=== PATIENT | female | born 1975 | race Caucasian/White ===

== ENCOUNTER 2023-04-23 14:36 | Outpatient (OUT) | payer OTHER, SELFPAY ==
--- NOTE | 2023-04-23 14:38 | XR_ITS ---
The [address] [address] Patient Name: RHEA CRUMP MRN: [id number] date: 1975 Sex: F Assigned Patient Location: [facility] Current Patient Location: [facility] Accession/Order Number: [id number] Exam Date: 04/23/2023 14:36 Report Date: 04/23/2023 14:59 At the request of: MILES ROTHMAN Procedure: XR foot LT min 3V EXAM: XR foot LT min 3V HISTORY: LEFT FOOT PAIN . Soft tissue lump plantar aspect. COMPARISON: None. TECHNIQUE: 3 views of left foot were obtained. FINDINGS: There is no evidence of an acute fracture or dislocation. The joint spaces are intact. An osteophyte arises from the insertion site of the Achilles tendon. No focal abnormality is seen in the soft tissues along the dorsal aspect of the foot. XR/XR foot LT min 3V IMPRESSION: No acute fracture or dislocation. No significant osseous abnormality is identified. An osteophyte arises from the insertion site of the Achilles tendon. No abnormality is seen in the soft tissues along the dorsal aspect of the foot. If further evaluation is clinically indicated perhaps an ultrasound study would be helpful. Electronically authenticated by: MILES PELAYO Date: 04/23/2023 14:59
== END 2023-04-23 14:37 | disposition home or self-care (01) ==
LOC: RAD 14:36
PROVIDERS: Visit Provider Podiatrist Foot & Ankle Surgery
DX: R22.42 Localized swelling, mass and lump, left lower limb (principal)
CPT/HCPCS: 73630

== ENCOUNTER 2023-04-28 06:45 | Outpatient (OUT) | payer OTHER, SELFPAY ==
--- NOTE | 2023-04-28 06:48 | MR_ITS ---
The [place] [id number] Patient Name: RHEA CRUMP MRN: [id number] date: 1975 Sex: F Assigned Patient Location: MRI Current Patient Location: MRI Accession/Order Number: [id number] Exam Date: 04/28/2023 06:55 Report Date: 04/29/2023 12:24 At the request of: MILES ROTHMAN Procedure: MR ankle LT wo con MRI left ankle, 04/28/2023. HISTORY: Patient has a painful lump along the plantar aspect of the left foot. Pain after walking. Plantar fascial fibromatosis M7.22 COMPARISON: Radiographs left foot 04/23/2023. TECHNIQUE: Multiplanar, multisequence MRI images of the left ankle and foot were obtained without contrast. FINDINGS: LIGAMENTS: The anterior talofibular ligament appears within normal limits. The calcaneofibular ligament, posterior talofibular ligament, and distal tibiofibular ligaments appear within normal limits. The deltoid ligament complex appears within normal limits. TENDONS: There is evidence of a longitudinal split tear of the retromalleolar and inframalleolar portion of the peroneus brevis tendon spanning approximately 4.5 cm in length. There is a small amount of fluid within the peroneal tendon sheath in this region. The other tendons appear unremarkable. SINUS TARSI AND TARSAL TUNNEL: No space-occupying mass is seen in the tarsal tunnel or the sinus tarsi. BONES AND JOINTS: The bone marrow signal intensity is age appropriate. No unstable osteochondral defect of the tibiotalar joint is identified. PLANTAR FASCIA: There is a focal area of mild fusiform thickening and intermediate signal intensity involving the central band of the plantar fascia at the level of the first tarsometatarsal joint. This measures approximately 3 x 10 x 11 mm in craniocaudal, AP, and transverse dimension respectively. The remainder of the visualized plantar fascia appears unremarkable. SOFT TISSUES: No significant soft tissue swelling is seen. MR/MR ankle LT wo con IMPRESSION: 1. There are MRI findings compatible with a small focal fibroma involving the central band of the plantar fascia at the level of the first tarsometatarsal joint. 2. Longitudinal split tear of the retromalleolar and inframalleolar portion of the peroneus brevis tendon spanning approximately 4.5 cm in length with a probable adjacent mild tenosynovitis. 3. No ligament injury is seen. Electronically authenticated by: BOBBY ANNA Date: 04/29/2023 12:24
== END 2023-04-28 06:46 | disposition home or self-care (01) ==
LOC: MRI 06:45
PROVIDERS: PCP Family Medicine; Visit Provider Podiatrist Foot & Ankle Surgery
DX: M72.2 Plantar fascial fibromatosis (principal); R22.42 Localized swelling, mass and lump, left lower limb
CPT/HCPCS: 73721

== ENCOUNTER 2024-01-12 07:36 | Outpatient (OUT) | payer OTHER, SELFPAY ==
--- NOTE | 2024-01-12 07:46 | MM_ITS ---
Patient Name: RHEA CRUMP MR#: [id number] : 1975 Exam Date: 01/12/2024 Ordering Doctor: DR NATASHA CARTER D.O. RADIOLOGY REPORT PROCEDURE: MM TOMOSYNTHESIS SCREENING BI COMPARISON: MG MAMM SCREEN 3D KATIE CAD, 05/23/2021. MG MAMM SCREEN KATIE W CAD, 04/12/2020. MG MAMM SCREEN KATIE W CAD, 02/04/2019. MG MAMM KATIE SCRN W CAD DIG, 03/08/2014. INDICATIONS: Screening Calculator Name NCI Breast Cancer Risk Assessment Tool 5 Year Breast Cancer Risk 1.00% Lifetime Breast Cancer Risk 9.40% Personal Breast Cancer No Personal Ovarian Cancer No Treatments None Family Cancers None LOCATION: The [facility] BREAST COMPOSITION: The breasts are heterogeneously dense,which may obscure small masses. FINDINGS: DIAGNOSTIC CATEGORY 2--BENIGN FINDING: RIGHT BREAST: No significant suspicious finding. Scattered benign-appearing calcifications are present. Scattered benign-appearing lymph nodes are present. No significant change has occurred. LEFT BREAST: No significant suspicious finding. No significant change has occurred. RECOMMENDATIONS: ROUTINE MAMMOGRAM AND CLINICAL EVALUATION IN 12 MONTHS. PLEASE NOTE: A NORMAL MAMMOGRAM DOES NOT EXCLUDE THE POSSIBILITY OF BREAST CANCER. A CLINICALLY SUSPICIOUS PALPABLE LUMP SHOULD BE BIOPSIED. Dictated by: Shabbir Marsh M.D. on 01/12/2024 at 12:54 Approved by: Shabbir Marsh M.D. on 01/12/2024 at 12:59
--- NOTE | 2024-01-12 07:47 | XR_ITS ---
[address] [address] Patient Name: RHEA CRUMP MRN: [id number] date: 1975 Sex: F Assigned Patient Location: [facility] Current Patient Location: [facility] Accession/Order Number: [id number] Exam Date: 01/12/2024 08:01 Report Date: 01/12/2024 08:35 At the request of: NATASHA CARTER Procedure: XR DEXA axial skeleton EXAMINATION: XR DEXA axial skeleton HISTORY: Asymptomatic Menopause Z78.0 COMPARISON: No relevant comparison available. TECHNIQUE: Dual-energy X-ray absorptiometry (DXA) was performed. FINDINGS: SPINE ANALYSIS: Average bone mineral density is 0.980 g/cm2. T-score (standard deviation relative to young adult mean): -1.7 . HIP ANALYSIS: Lowest bone mineral density is within the right femoral trochanter, 0.560 g/cm2. T-score (standard deviation relative to young adult mean): -2.5. T score within femoral neck is -2.0 . XR/XR DEXA axial skeleton IMPRESSION: World Jesse Organization Classification: Osteoporosis - High Fracture Risk Electronically authenticated by: LANNY AN Date: 01/12/2024 08:35
[2024-01-12 13:16] LABS: Anion Gap 11.5; Aspartate Amino Transferase 17 U/L (15-37); Bilirubin Total 0.4 mg/dL (0.2-1.0); Calcium 9.5 mg/dL (8.5-10.1); Carbon Dioxide 30.4 mmol/L (21.0-32.0); Chloride 104 mmol/L (98-107); Estimated GFR (African America >60 (>=60); Estimated GFR (Non-African Ame >60 (>=60); Glucose 86 mg/dL (74-106); Potassium 3.9 mmol/L (3.5-5.1); Sodium 142 mmol/L (136-145)
[2024-01-12 13:17] LABS: Alanine Aminotransferase 29 U/L (14-59); Albumin Globulin Ratio 1.2; Albumin Level 3.9 g/dL (3.4-5.0); Alkaline Phosphatase 109 U/L (46-116); Cholesterol 218 mg/dL (<=200); Globulin 3.2 g/dL; HDL Cholesterol 85 mg/dL (40-60); Total Protein 7.1 g/dL (6.4-8.2); Triglycerides 37 mg/dL (<=150); VLDL CHOLESTEROL 7.4 mg/dL
[2024-01-12 13:48] LABS: Chol HDL Ratio 2.6
== END 2024-01-12 07:37 | disposition home or self-care (01) ==
LOC: MAMMO 07:36
PROVIDERS: PCP Family Medicine; Visit Provider Family Medicine
DX: Z12.31 Encounter for screening mammogram for malignant neoplasm of breast (principal); Z78.0 Asymptomatic menopausal state; E78.00 Pure hypercholesterolemia, unspecified; M81.0 Age-related osteoporosis without current pathological fracture
CPT/HCPCS: 36415; 77063; 77067; 77080; 80053; 80061

== ENCOUNTER 2024-03-11 07:39 | Outpatient (RCR) | payer OTHER, SELFPAY ==
[2024-03-11 12:22] VITALS: BP 149/80; PULSE 103; TEMP 37.2; O2SAT 95
--- NOTE | 2024-03-11 12:28 | PC.NURSE ---
1222: Pt. to [facility] amb. Seated in recliner. VSS. Pt. given education regarding medicine. Questions addressed.
[2024-03-11] MEDS: ROMOSOZUMAB-AQQG 210 MG/2.34 ML SYRINGE SQ (12:35)
--- NOTE | 2024-03-11 12:44 | PC.NURSE ---
1235: Medicated with Evenity 210mg IM to right arm. Tolerated without c/o. Instructed to remain in chair for 15-20mins to observe for potential reaction. Pt. relays understanding.
--- NOTE | 2024-03-11 12:53 | PC.NURSE ---
1252: Pt without s&s of adverse reaction. No redness, bleeding or irritation noted to arm at injection sites. Pt. without c/o. D/c'd amb. to home.
== END 2024-03-12 10:51 | disposition home or self-care (01) ==
LOC: INF 07:39
PROVIDERS: PCP Family Medicine; Visit Provider Family Medicine
DX: M81.0 Age-related osteoporosis without current pathological fracture (principal)
CPT/HCPCS: 96372; J3111

== ENCOUNTER 2024-04-08 07:23 | Outpatient (RCR) | payer OTHER, SELFPAY ==
[2024-04-08 08:00] VITALS: BP 138/81; PULSE 80; TEMP 36.6; O2SAT 97
[2024-04-08] MEDS: ROMOSOZUMAB-AQQG 210 MG/2.34 ML SYRINGE SQ (08:19)
--- NOTE | 2024-04-08 08:24 | PC.NURSE ---
patient not taking calcium and vitamin d, encouraged patient to speak with PCP about this
== END 2024-04-14 23:59 | disposition home or self-care (01) ==
LOC: INF 07:23
PROVIDERS: PCP Family Medicine; Visit Provider Family Medicine
DX: M81.0 Age-related osteoporosis without current pathological fracture (principal)
CPT/HCPCS: 96372; J3111

== ENCOUNTER 2024-05-13 07:45 | Outpatient (RCR) | payer OTHER, SELFPAY ==
[2024-05-13 08:00] VITALS: BP 153/83; PULSE 81; TEMP 36.6; O2SAT 98
[2024-05-13] MEDS: ROMOSOZUMAB-AQQG 210 MG/2.34 ML SYRINGE SQ (08:20)
--- NOTE | 2024-05-13 08:33 | PC.NURSE ---
0800: Pt. to [facility] amb for injection. Seated in recliner. VSS. Denies c/o adverse reaction from Evenity with past injections. 0820: Medicated with Evenity as ordered, see MAR. Pt. tolerated without c/o. Trace bleeding to injection #2 site, Bandaid applied. 0825: Pt. d/c'd amb. to home.
== END 2024-05-15 23:59 | disposition home or self-care (01) ==
LOC: INF 07:45
PROVIDERS: PCP Family Medicine; Visit Provider Family Medicine
DX: M81.0 Age-related osteoporosis without current pathological fracture (principal)
CPT/HCPCS: 96372; J3111

== ENCOUNTER 2024-06-10 07:39 | Outpatient (RCR) | payer OTHER, SELFPAY ==
[2024-06-10 10:55] VITALS: BP 143/89; PULSE 85; TEMP 36.4; O2SAT 98
[2024-06-10] MEDS: ROMOSOZUMAB-AQQG 210 MG/2.34 ML SYRINGE SQ (11:03)
--- NOTE | 2024-06-10 11:08 | PC.NURSE ---
1055: Pt. to [facility] amb. to monthly injection. Seated in recliner. VSS. Denies adverse reactions with previous injections of Evenity. 1103: Medicated with Evenity 210mg SQ to right and left upper arm. No bleeding or c/o pain voice. 1107: D/c'd amb. to home.
== END 2024-06-14 23:59 | disposition home or self-care (01) ==
LOC: INF 07:39
PROVIDERS: PCP Family Medicine; Visit Provider Family Medicine
DX: M81.0 Age-related osteoporosis without current pathological fracture (principal)
CPT/HCPCS: 96372; J3111

== ENCOUNTER 2024-07-15 07:38 | Outpatient (RCR) | payer OTHER, SELFPAY ==
[2024-07-15] MEDS: ROMOSOZUMAB-AQQG 210 MG/2.34 ML SYRINGE SQ (11:16)
== END 2024-07-15 23:59 | disposition home or self-care (01) ==
LOC: INF 07:38
PROVIDERS: PCP Family Medicine; Visit Provider Family Medicine
DX: M81.0 Age-related osteoporosis without current pathological fracture (principal)
CPT/HCPCS: 96372; J3111

== ENCOUNTER 2024-09-13 07:37 | Outpatient (RCR) | payer OTHER, SELFPAY ==
[2024-08-16 13:00] VITALS: BP 150/81; PULSE 109; TEMP 36.6; O2SAT 98
[2024-08-16] MEDS: ROMOSOZUMAB-AQQG 210 MG/2.34 ML SYRINGE SQ (13:05)
--- NOTE | 2024-08-16 13:21 | PC.NURSE ---
1300: Pt. to [facility] amb. for monthly injection. Seated in recliner. VSS. Medicated with Evenity x's 2 injection sites to right arm. No bleeding to sites. Pt. tolerates without c/o. 1311: D/c'd amb. to home.
[2024-09-13 11:00] VITALS: BP 140/88; PULSE 100; TEMP 37.2; O2SAT 99
[2024-09-13] MEDS: ROMOSOZUMAB-AQQG 210 MG/2.34 ML SYRINGE SQ (11:09)
== END 2024-09-13 12:36 | disposition home or self-care (01) ==
LOC: INF 07:37
PROVIDERS: PCP Family Medicine; Visit Provider Family Medicine
DX: M81.0 Age-related osteoporosis without current pathological fracture (principal)
CPT/HCPCS: 96372; J3111

== ENCOUNTER 2025-01-05 07:39 | Outpatient (OUT) | payer OTHER, SELFPAY ==
[2025-01-05 07:51] LABS: Basophils Percent Auto 0.7 % (0.2-2.0); Eosinophils Absolute Auto 0.1 10^3/uL (0.0-0.7); Eosinophils Percent Auto 2.1 % (0.9-7.0); Hematocrit 39.6 % (36.0-48.0); Hemoglobin 12.9 g/dL (12.0-16.0); Immature Granulocytes Abs Auto 0.01 10^3/uL (0.00-0.03); Immature Granulocytes Pct Auto 0.2 % (0.0-0.5); Lymphocytes Absolute Auto 1.5 10^3/uL (1.2-3.8); Lymphocytes Percent Auto 33.6 % (20.5-60.0); Mean Corpuscular HGB Conc 32.6 g/dL (29.9-35.2); Mean Corpuscular Hemoglobin 28.6 pg (26.7-34.0); Mean Corpuscular Volume 87.8 fL (81.0-99.0); Mean Platelet Volume 10.5 fL (9.5-13.5); Monocytes Absolute Auto 0.3 10^3/uL (0.3-0.8); Monocytes Percent Auto 6.8 % (1.7-12.0); Neutrophils Absolute Auto 2.5 10^3/uL (1.4-6.5); Neutrophils Percent Auto 56.6 % (43.0-75.0); Platelet Count 213 10^3/uL (150-450); Red Blood Count 4.51 10^6/uL (4.20-5.40); White Blood Count 4.4 10^3/uL (4.0-11.0)
[2025-01-05 08:31] LABS: Alanine Aminotransferase 20 U/L (14-59); Albumin Globulin Ratio 1.2; Albumin Level 3.8 g/dL (3.4-5.0); Alkaline Phosphatase 108 U/L (46-116); Anion Gap 10.8; Aspartate Amino Transferase 16 U/L (15-37); BUN Creatinine Ratio 21.7; Bilirubin Total 0.3 mg/dL (0.2-1.0); Calcium 9.3 mg/dL (8.5-10.1); Carbon Dioxide 31.2 mmol/L (21.0-32.0); Chloride 106 mmol/L (98-107); Chol HDL Ratio 2.4; Cholesterol 238 mg/dL (<=200); Estimated GFR (African America >60 (>=60 mL/min/1.73m^2); Estimated GFR (Non-African Ame >60 (>=60 mL/min/1.73m^2); Globulin 3.2 g/dL; Glucose 96 mg/dL (74-106); HDL Cholesterol 101 mg/dL (40-60); Sodium 144 mmol/L (136-145); Triglycerides 43 mg/dL (<=150); VLDL CHOLESTEROL 8.6 mg/dL
== END 2025-01-05 07:40 | disposition home or self-care (01) ==
LOC: LAB 07:41
PROVIDERS: PCP Family Medicine; Visit Provider Family Medicine
DX: Z00.00 Encounter for general adult medical examination without abnormal findings (principal)
CPT/HCPCS: 36415; 80053; 80061; 85025